=== PATIENT | male | born 1990 | race American Indian/Alaskan Native ===

== ENCOUNTER 2016-05-02 04:34 | Emergency (ER) | payer OTHER ==
--- NOTE | 2016-05-02 07:19 | Emergency Department Report ---
HPI - General Chief Complaint: Skin/Abscess/Foreign Body Time Seen by Provider: 05/02/16 07:04 - HPI HPI: 25-year-old male presents to ED complaining of swollen knee pole and pus drainage 1 week. Patient states a week ago he noticed his nipple swollen and appeared in a couple days after that he started to notice prostrated than it from the sides. Patient states greenish yellowish pus. Patient denies any itching or lesions. Patient denies fevers/chills/nausea/vomiting/abdominal pain/chest pain/ shortness of breath or any other problems. ED Past Medical Hx - Past Medical History Previous Medical History?: No - Surgical History Past Surgical History?: Yes Additional Surgical History: l knee sx - Social History Smoking Status: Current Every Day Smoker Substance Use Type: Alcohol, Marijuana - Medications Home Medications: Home Medications Medication Instructions Recorded Confirmed Last Taken Type Ciprofloxacin HCl [Ciprofloxacin 750 mg PO BID #28 tablet 09/16/15 Unknown Rx TAB] Cephalexin [Keflex] 500 mg PO BID #14 capsule 05/02/16 Unknown Rx Ibuprofen [Motrin] 400 mg PO Q8H PRN #30 tablet 05/02/16 Unknown Rx Neomycin Friedman/Bacitrac Zn/Poly 1 applic TP TID #1 tube 05/02/16 Unknown Rx [Neosporin Antibiotic Ointment] ED Review of Systems ROS: Stated complaint: SWOLLEN RT NIPPLE Other details as noted in HPI Constitutional: denies: chills, fever Eyes: denies: eye pain, eye discharge, vision change ENT: denies: ear pain, throat pain Respiratory: denies: cough, shortness of breath, wheezing Cardiovascular: denies: chest pain, palpitations Endocrine: no symptoms reported Gastrointestinal: denies: abdominal pain, nausea, diarrhea Genitourinary: denies: urgency, dysuria Musculoskeletal: denies: back pain, joint swelling, arthralgia Skin: other (Nipples crusty and swollen). denies: rash, lesions Neurological: denies: headache, weakness, paresthesias Psychiatric: denies: anxiety, depression Hematological/Lymphatic: denies: easy bleeding, easy bruising Physical Exam - Physical Exam Vital Signs: Vital Signs 05/02/16 04:57 Temperature 98.8 F Pulse Rate 80 Respiratory 20 Rate Blood Pressure 123/81 O2 Sat by Pulse 100 Oximetry Physical Exam: GENERAL: Alert and oriented x3, no apparent distress, Normal Gait, atraumatic. HEAD: Head is normocephalic and a-traumatic. EYES: Extra ocular muscles are intact. Pupils are equal, round, and reactive to light and accommodation. EARS: symetrical, atraumatic, non tender. gross auditory nml bilaterally. NOSE: Nose symetrical, Nontender,Nares appeared normal. MOUTH:Mouth is well hydrated and without lesions. Mucous membranes are moist. Posterior pharynx clear, no exudate or lesions. Patent airways. NECK: Supple. Non edematous, No carotid bruits. No lymphadenopathy or thyromegaly. LUNGS: Symetrical with respiration, No wheezing, no rales or crackles, CTAB. HEART: S1, S2 present, regular rate and rhythm without murmur, no rubs, no gallops. ABDOMEN: No organomegaly was noted,Positive bowel sounds, soft, and non- distended. . Nontender to palpation on all Quadrants, NO CVA tenderness. BREAST: Symetrical, Supple bilaterally, No Masses, lumps. Right nipple edema and crustrations around the nipple. Dried pus visualized no active drainage. EXTREMITIES/MUSCULOSKELETAL: No cyanosis, clubbing, rash, lesions or edema. Full ROM bilaterally. UE/LE Pulses 2+ bilaterally. LE and UE 5+ strength bilaterally NEUROLOGIC: No focal Deficit, Cranial nerves II through XII are grossly intact. No loss of sensation, PSYCHIATRIC: Mood is congruent with affect, denies suicidal or homicidal ideations. SKIN: Warm and dry, No lesions, No ulceration or induration present. Otherwise specified and breast exam ED Course Vital Signs 05/02/16 04:57 Temperature 98.8 F Pulse Rate 80 Respiratory 20 Rate Blood Pressure 123/81 O2 Sat by Pulse 100 Oximetry ED Medical Decision Making - Medical Decision Making 25-year-old male presents with right nipple infection. Discussed with patient and antibiotic therapies next 7 days as well as warm compresses applied to right nipple. Discussed with patient home medications of Motrin for pain, Neosporin ointment to be applied to the nipple and antibiotics for an infection. Discussed with patient follow-up with referrals given [facility] for mammogram. Discussed follow-up with primary care physician otherwise referred. Patient verbally states that he understands and will follow-up. Critical care attestation.: If time is entered above; I have spent that time in minutes in the direct care of this critically ill patient, excluding procedure time. ED Disposition Clinical Impression: Infection of nipple Disposition: DISCHARGED TO HOME OR SELFCARE Is pt being admited?: No Does the pt Need Aspirin: No Condition: Stable Instructions: Mammogram (ED), Impetigo (ED), Cellulitis (ED) Prescriptions: Cephalexin [Keflex] 500 mg PO BID #14 capsule Ibuprofen [Motrin] 400 mg PO Q8H PRN #30 tablet PRN Reason: Pain Neomycin Friedman/Bacitrac Zn/Poly [Neosporin Antibiotic Ointment] 1 applic TP TID #1 tube Referrals: PRIMARY CARE, [Primary Care Provider] - 3-5 Days [facility] [Outside] - 3-5 Days [facility] [Outside] - 3-5 Days [facility] [Outside] - 3-5 Days Forms: Work/School Release Form(ED) Time of Disposition: 07:28
[2016-05-02 08:01] VITALS: BP 120/78
== END 2016-05-02 07:59 | disposition home or self-care (01) ==
LOC: ED 04:34
DX: N61.0 Mastitis without abscess (principal); F17.200 Nicotine dependence, unspecified, uncomplicated; F12.10 Cannabis abuse, uncomplicated
CPT/HCPCS: 99282